=== PATIENT | male | born 1985 | race Caucasian/White ===

== ENCOUNTER 2019-12-28 14:26 | Emergency (ER) | payer OTHER ==
[2019-12-28 14:37] VITALS: BP 162/91
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
[2019-12-28] MEDS ORDERED: Amoxicillin/Clavulanate TAB* 875 MG PO ONE (15:37)
[2019-12-28 18:11] LABS: ABS Eosinophils 0.1 10^3/ul (0-0.6); ABS Lymphocytes 1.9 10^3/ul (1.0-4.8); ABS Monocytes 0.7 10^3/ul (0-0.8); ABS Neutrophils 4.6 10^3/ul (1.5-7.7); Eosinophil % 1.5 %; Hematocrit 47 % (42-52); Hemoglobin 16.4 g/dL (14.0-18.0); Lymphocyte % 26.4 %; Mean Corpuscular HGB Conc 35 g/dL (31-36); Mean Corpuscular Hemoglobin 33 pg (27-31); Mean Corpuscular Volume 96 fL (80-94); Mean Platelet Volume 10.2 fL (7.4-10.4); Nucleated Red Blood Cells % 0.1; Platelet Count 170 10^3/uL (150-450); Red Blood Count 4.94 10^6 /uL (4.18-5.48); Red Cell Distribution Width 12 % (10-15); White Blood Count 7.3 10^3/uL (3.5-10.8)
[2019-12-28 18:30] LABS: Albumin 4.5 g/dL (3.2-5.2); Albumin/Globulin Ratio 1.8 (1-3); BUN/Creatinine Ratio 20.4 (8-20); Calcium 9.3 mg/dL (8.6-10.3); EGFR Non-African American 82.7 (>60); Globulin 2.5 g/dL (2-4); Potassium 3.8 mmol/L (3.5-5.0); Total Bilirubin 0.4 mg/dL (0.2-1.0)
[2019-12-28 18:58] LABS: Hepatitis B Surface Antigen Nonreactive (Nonreactive)
[2019-12-28 19:09] LABS: HIV 4th Generation Nonreactive (Nonreactive)
[2019-12-28 19:15] LABS: Hepatitis B Surface Ab Immune (Immune)
[2019-12-28 19:16] LABS: Hepatitis C Antibody Negative (Negative)
== END 2019-12-28 16:06 | disposition home or self-care (01) ==
LOC: UCEAST 14:26
DX: S51.831A Puncture wound without foreign body of right forearm, initial encounter (principal); Y04.1XXA Assault by human bite, initial encounter; Y93.F9 Activity, other caregiving; Y92.230 Patient room in hospital as the place of occurrence of the external cause; Y99.0 Civilian activity done for income or pay; F17.200 Nicotine dependence, unspecified, uncomplicated
CPT/HCPCS: 36415; 80053; 85025; 86706; 86803; 87340; 87389; 99212; A9270-GY; G0463